=== PATIENT | female | born 1950 | race Caucasian/White ===

== ENCOUNTER 2020-02-09 15:39 | Emergency (ER) | payer MEDICARE, SELFPAY ==
[2020-02-09 15:52] VITALS: BP 152/97; PULSE 16; RESP 18; TEMP 36.6; O2SAT 100
[2020-02-09 16:25] VITALS: BP 161/81
[2020-02-09] MEDS: LORazepam 1 MG TABLET PO (16:54)
[2020-02-09 17:37] VITALS: BP 157/73; PULSE 58; RESP 19; O2SAT 100
--- NOTE | 2020-02-09 18:24 | ED.GENADULT ---
HPI - General Adult General Chief complaint: Recheck/Abnormal Lab/Rx Stated complaint: high blood pressure Time Seen by Provider: 02/09/20 15:55 Related Data Home Medications Medication Instructions Recorded Confirmed abatacept [Orencia] mg SUBCUT 02/09/20 anastrozole mg 02/09/20 famotidine 02/09/20 folic acid 02/09/20 ibandronate mg PO 02/09/20 methotrexate sodium 02/09/20 metoprolol succinate PO 02/09/20 tazarotene [Tazorac] 1 applic TOPICAL DAILY 02/09/20 Allergies Allergy/AdvReac Type Severity Reaction Status Date / Time erythromycin base Allergy Nausea and Verified 02/09/20 16:44 Vomiting haloperidol [From Haldol] Allergy Anaphylactic Verified 02/09/20 16:44 Shock Penicillins Allergy Rash Verified 02/09/20 16:44 Sulfa (Sulfonamide Allergy Rash Verified 02/09/20 16:44 Antibiotics) [facility] Past Medical History Medical History (Updated 02/09/20 @ 18:27 by Valdemar Antonio PA-C) Anxiety Rheumatoid arthritis Social History Social History (Updated 02/09/20 @ 18:24 by Valdemar Antonio PA-C) Smoking status: Never smoker Gender identity (if verbalized by the patient): Female Exam Narrative: Exam Narrative: GENERAL: Well-appearing, well-nourished, and in no acute distress. HEAD: Normocephalic, atraumatic. EYES: PERRLA and EOMI. ENT: Nares clear, no rhinorrhea or epistaxis. Mucous membranes moist. Oropharynx without tonsillar hypertrophy exudate or other lesions. CHEST: Clear to auscultation. No respiratory distress. No wheezes rales or rhonchi HEART: Regular rate and rhythm. No murmur heard. Normal peripheral pulses. ABDOMEN: Soft, nontender, nondistended EXTREMITIES: Normal range of motion. No edema. SKIN: Warm, dry, no rash. NEURO: No focal deficits. Alert and oriented x3. PSYCH: Acutely anxious with normal affect Course Course Emergency Course: Patient in the room resting comfortably aware of case findings treatment plan and diagnosis advised to follow with primary care for further evaluation of her anxiety Vital Signs Vital signs: Vital Signs Temperature 97.9 F 02/09/20 15:52 Pulse Rate 16 L 02/09/20 15:52 Respiratory Rate 18 02/09/20 15:52 Blood Pressure 152/97 H 02/09/20 15:52 Pulse Oximetry 100 02/09/20 15:52 Temperature 97.9 F 02/09/20 15:52 Pulse Rate 58 L 02/09/20 17:37 Respiratory Rate 19 02/09/20 17:37 Blood Pressure 157/73 H 02/09/20 17:37 Pulse Oximetry 100 02/09/20 17:37 Medical Decision Making MDM Narrative Medical decision making narrative: Patient resting comfortably in the room given Ativan in the emergency department resting comfortably feels comfortable with discharge home provided with reasons to return patient is afebrile nontoxic-appearing no distress felt appropriate for outpatient reevaluation Vital Signs Vital Signs: Vital Signs Temperature 97.9 F 02/09/20 15:52 Pulse Rate 16 L 02/09/20 15:52 Respiratory Rate 18 02/09/20 15:52 Blood Pressure 152/97 H 02/09/20 15:52 Pulse Oximetry 100 02/09/20 15:52 Temperature 97.9 F 02/09/20 15:52 Pulse Rate 58 L 02/09/20 17:37 Respiratory Rate 19 02/09/20 17:37 Blood Pressure 157/73 H 02/09/20 17:37 Pulse Oximetry 100 02/09/20 17:37 Discharge Plan Discharge Clinical Impression: Anxiety Patient Disposition: Home, Self-Care Condition: Stable Instructions: Antibiotic Form, Anxiety (ED) Additional Instructions: Follow up with your primary care doctor in 5-7 days for re-evaluation. Go to ER for worsening pain, vision changes, nausea/vomiting, fever/chills, weakness, chest pain, shortness of breath, numbness/tingling, slurred speech, difficulty walking, change in mental status etc. or any other concerns. Take any prescribed medications as directed. Prescriptions: New hydroxyzine pamoate [Vistaril] 25 mg capsule 25 mg PO BID PRN (Reason: anxiety) Qty: 10 RF: 0 No Action anastrozole 1 mg tabl
[2020-02-09 18:46] VITALS: BP 112/74; PULSE 60; RESP 18; O2SAT 98
== END 2020-02-09 18:47 | disposition home or self-care (01) ==
PROVIDERS: Emergency Provider Emergency Medicine
DX: F41.9 Anxiety disorder, unspecified (principal); M06.9 Rheumatoid arthritis, unspecified; I10 Essential (primary) hypertension
CPT/HCPCS: 99284; A9270